=== PATIENT | female | born 1945 | race Caucasian/White ===

== ENCOUNTER 2017-10-14 12:34 | Outpatient (CLI) | payer MEDICARE ==
--- NOTE | 2017-10-14 14:50 | ULT ---
ULTRASOUND WITH DOPPLER DUPLEX VENOUS LOWER EXTREMITY RIGHT: HISTORY: A 72-year-old female with right lower extremity edema. TECHNIQUE: Color flow Doppler, spectral waveform analysis of pulsed Doppler, and cortez-scale imaging with josiah jeison and augmentation were used to evaluate the right common femoral, femoral, popliteal, posterior t ibial, and superficial femoral veins, and the proximal portions of the profunda femoral and greater s aphenous veins. FINDINGS: There is normal compressibility, demonstration of blood flow by color Doppler and pulsed Doppler, and response to augmentation in all interrogated veins. IMPRESSION: Negative. No deep vein thrombosis in the right lower extremity. jn [] POS: LEXIS
== END 2017-10-14 12:35 | disposition home or self-care (01) ==
LOC: ULT 12:34
PROVIDERS: ATTEND Internal Medicine Nephrology
DX: R60.9 Edema, unspecified (principal)